=== PATIENT | female | born 1985 | race Caucasian/White ===

== ENCOUNTER → 2018-05-23 | Outpatient (CLI) | payer BC ==
--- NOTE | 2018-05-23 22:26 | MR ---
MR right foot with and without contrast HISTORY: Mass. Bilateral side of right foot Multiplanar multisequence imaging obtained through the right foot, postcontrast images performed afte r 10 cc Gadavist IV No comparisons There is edema signal present at the level of the soft tissues proximal to the fifth metatarsal, an o verlying marker is present at this level denoting the site of the symptomatology. Contrast enhancemen t is present at this level. The lateral cord of the plantar aponeurosis shows abnormal thickening at this level with mixed signal intensity. Bone marrow signal is maintained. IMPRESSION: Findings thought to represent a tear of the lateral cord of the plantar aponeurosis.
== END | disposition home or self-care (01) ==
LOC: RADMRIMAIN 19:36
PROVIDERS: ATTEND Podiatrist Foot & Ankle Surgery
DX: R22.41 Localized swelling, mass and lump, right lower limb (principal)
CPT/HCPCS: 73720; A9581